=== PATIENT | male | born 1965 | race Caucasian/White ===

== ENCOUNTER 2016-04-04 17:47 | Emergency (ER) | payer MEDICARE ==
--- NOTE | 2016-04-04 18:54 | ED ---
General Adult HPI - General Source: patient, RN notes reviewed Mode of arrival: ambulatory Limitations: no limitations <Asher Sherman - Last Filed: 04/04/16 18:52> <Bi Thomas - Last Filed: 04/05/16 03:22> - General Chief complaint: Psychiatric Symptoms Stated complaint: Mental Health Eval Time Seen by Provider: 04/04/16 18:00 - History of Present Illness Initial comments: Patient is a pleasant 50-year-old male presenting to the emergency department complaining of alcohol intoxication. Patient admits to drinking alcohol and states prior to this he has not drank in the past month. Patient states he was drunk and upset. Patient does admit to making suicidal threats however states he did not mean this. Patient states he was not suicidal and is not been depressed. Patient states he has too much to live for. Patient states his girlfriend called the police and they brought him in. No homicidal thoughts. No hallucinations. No physical complaints. (Asher Sherman) - Related Data Home Medications Medication Instructions Recorded Confirmed Escitalopram [Lexapro] 20 mg PO DAILY 04/04/16 04/04/16 Tadalafil [Cialis] 10 mg PO DAILY PRN 04/04/16 04/04/16 hydrOXYzine HCL [Atarax] 50 mg PO BID PRN 04/04/16 04/04/16 Allergies Allergy/AdvReac Type Severity Reaction Status Date / Time No Known Allergies Allergy Verified 04/04/16 18:00 Review of Systems ROS Other: All systems not noted in ROS Statement are negative. Constitutional: Denies: fever Eyes: Denies: eye pain ENT: Denies: ear pain Respiratory: Denies: cough Cardiovascular: Denies: chest pain Endocrine: Denies: fatigue Gastrointestinal: Denies: abdominal pain Genitourinary: Denies: dysuria Musculoskeletal: Denies: back pain Skin: Denies: rash Neurological: Denies: weakness Psychiatric: Reports: anxiety <Asher Sherman - Last Filed: 04/04/16 18:52> ROS Other: All systems not noted in ROS Statement are negative. <Bi Thomas - Last Filed: 04/05/16 03:22> ROS Statement: Those systems with pertinent positive or pertinent negative responses have been documented in the HPI. Past Medical History Past Medical History: No Reported History History of Any Multi-Drug Resistant Organisms: None Reported Past Surgical History: No Surgical Hx Reported Past Psychological History: Anxiety, Depression Smoking Status: Unknown if ever smoked Past Alcohol Use History: Daily Past Drug Use History: None Reported <Asher Sherman - Last Filed: 04/04/16 18:52> General Exam Limitations: no limitations General appearance: alert, in no apparent distress Head exam: Present: atraumatic Eye exam: Present: normal appearance, PERRL, EOMI ENT exam: Present: normal oropharynx Neck exam: Present: normal inspection Respiratory exam: Present: normal lung sounds bilaterally Cardiovascular Exam: Present: regular rate, normal rhythm GI/Abdominal exam: Present: soft. Absent: tenderness Extremities exam: Present: normal inspection. Absent: pedal edema, calf tenderness Neurological exam: Present: alert Psychiatric exam: Present: other (Patient is mildly agitated) Skin exam: Present: normal color <Asher Sherman - Last Filed: 04/04/16 18:52> Disposition <Asher Sherman - Last Filed: 04/04/16 18:52> <Bi Thomas - Last Filed: 04/05/16 03:22> Clinical Impression: Alcohol intoxication Disposition: HOME SELF-CARE Condition: Good Instructions: Alcohol Intoxication (ED) Referrals: None,Stated [Primary Care Provider] - 1-2 days
[2016-04-05 03:34] VITALS: BP 150/62; PULSE 70; RESP 14; TEMP 98
== END 2016-04-05 03:33 | disposition home or self-care (01) ==
LOC: EC 17:47
DX: F10.129 Alcohol abuse with intoxication, unspecified (principal); F41.9 Anxiety disorder, unspecified; F32.9 Major depressive disorder, single episode, unspecified; Z79.899 Other long term (current) drug therapy
CPT/HCPCS: 82075; 99283